=== PATIENT | male | born 1985 | race Two or more races ===

== ENCOUNTER 2017-04-02 09:00 | Emergency (ER) | payer OTHER ==
[~2017-04-02] VITALS: Wt 78.6 kg
--- NOTE | 2017-04-02 18:21 | ERD ---
ER Documentation Chief Complaint Date/Time DATE: 04/02/17 TIME: 18:18 Chief Complaint fb in ear HPI This a 31-year-old male presents to the emergency department today stating that part of his earphone is stuck in his left ear. States that at 730 this morning he had uses headphones and went to put out and the lower part got stuck in his ear. Denies any dizziness. ROS All systems reviewed and are negative except as per history of present illness. Allergies Allergies: Coded Allergies: No Known Allergy (Unverified , 07/26/13) PMhx/Soc Medical and Surgical Hx: pt denies Medical Hx, pt denies Surgical Hx Hx Alcohol Use: No Hx Substance Use: No Hx Tobacco Use: No Physical Exam Vitals Vital Signs Date Time Temp Pulse Resp B/P Pulse Ox O2 Delivery O2 Flow Rate FiO2 04/02/17 09:05 98.0 77 20 164/99 98 Physical Exam Const: No acute distress Head: Atraumatic Eyes: Normal Conjunctiva ENT: Right ear TM normal. Left ear with evidence of plastic earbud. Nose no drainage. Throat erythema no exudate Neck: Full range of motion..~ No meningismus. Resp: Clear to auscultation bilaterally Cardio: Regular rate and rhythm, no murmurs Skin: No petechiae or rashes Neur: Awake and alert Psych: Normal Mood and Affect Procedures/MDM This a 31-year-old male who presents the emergency department today for foreign body in his left ear. Patient had indicated that he use his headphones this morning and pulled off his headphones and the plastic piece remained inside his ear. On visual inspection there was a black rubber earpiece in the patient's ear that was easily removed with alligator forceps. TMs were within normal limits. Patient denies any hearing loss or dizziness. Patient was discharged home. He denied any pain. Low suspicion for otitis media, otitis externa, mastoiditis. At this time the patient is stable for discharge and outpatient management. Patient should follow up with their PCP in the next 1-2 days. They may return to the emergency department sooner for any persistent or worsening of symptoms. Patient understood and agreed with the plan. Departure Diagnosis: Primary Impression: Retained foreign body Condition: RUPALI Garcia PA-C Apr 02, 2017 18:16
== END 2017-04-02 10:59 | disposition home or self-care (01) ==
LOC: FTE 09:00
DX: T16.2XXA Foreign body in left ear, initial encounter (principal); X58.XXXA Exposure to other specified factors, initial encounter; Y92.9 Unspecified place or not applicable

== ENCOUNTER 2019-03-30 05:09 | Emergency (ER) | payer OTHER ==
[~2019-03-30] VITALS: Ht 162.6 cm; Wt 85.4 kg
[~2019-03-30 05:09] MED LIST: CEPH-443 PO; IBUP-1542 PO; OXYC-279 PO
[2019-03-30 05:16] VITALS: Ht 162.6 cm; Wt 85.4 kg
[2019-03-30] MEDS ORDERED: ONDANSETRON 4 MG INJ IV STA (05:30)
[2019-03-30] MEDS ORDERED: SOD CHLORIDE 0.9% 1,000 ML IV STA (05:30)
[2019-03-30] MEDS ORDERED: morphine 4 MG/ML VIAL IV STA (05:30)
[2019-03-30] MEDS ORDERED: FLUCONAZOLE 200 MG TAB PO ONE (07:00)
[2019-03-30 07:48] VITALS: BP 122/65; PULSE 76; RESP 20
== END 2019-03-30 07:51 | disposition home or self-care (01) ==
LOC: E/R 05:09
DX: N20.1 Calculus of ureter (principal); I10 Essential (primary) hypertension
CPT/HCPCS: 36415; 74176; 80053; 81001; 83690; 85025; 87086; 96374; 96375; 99285; J2270; J2405; J7030

== ENCOUNTER 2019-04-20 16:05 | Emergency (ER) | payer OTHER ==
[~2019-04-20] VITALS: Wt 86.6 kg
[2019-04-20 16:37] VITALS: BP 154/104; PULSE 71; RESP 20
[2019-04-20] MEDS ORDERED: KETOROLAC 30 MG INJ IM STA (17:43)
== END 2019-04-20 18:29 | disposition left against medical advice (07) ==
LOC: FTE 16:05
DX: R51 Headache (principal); R03.0 Elevated blood-pressure reading, without diagnosis of hypertension; I10 Essential (primary) hypertension
CPT/HCPCS: 99282; J1885